=== PATIENT | female | born 1975 | race Caucasian/White ===

== ENCOUNTER 2016-10-24 10:59 | Day surgery (SDC) | payer OTHER ==
[~2016-10-24] VITALS: Ht 167.6 cm; Wt 74.0 kg
[~2016-10-24 10:59] MED LIST: 0.9% Sodium Chloride 1,000 ML IV SCH; LANS15TA3 PO; Sodium Chloride LOK Flush 10 mL Syringe IV PRN; fentaNYL-PF 50 mCg/mL 2 mL Inj IVPUSH PRN
[2016-10-24 11:25] VITALS: BP 145/96; PULSE 109; RESP 16; O2SAT 100
--- NOTE | 2016-10-24 12:53 | PCM.ENDEGD ---
EGD Date of Service: Oct 24, 2016 Physician Marck Nettles MD Pre Procedure Diagnosis: Epigastric pain and anemia Post Procedure Dx & Findings: Irregular Z line gastric nodule Procedure Esophagogastroduodenoscopy After proper sedation, Olympus video endoscope was inserted into patient's mouth and esophagus was successfully intubated. Scope introduced esophagus. Esophagus showed normal shiny whitish mucosa consistent with squamous cell component. Z line was irregular at 40 cm from the incisors. Biopsies obtained. Scope further advanced to the stomach. Stomach showed normal shiny mucosa with normal appearing rugae folds without any ulcer mass erosion. However in the antrum, there was a 5 mm nodule and a 3 mm nodule. These 2 sites were biopsied. Cardia fundus body antrum pylorus were all visualized. Retroflexion was done. Stomach was easily inflated and deflatable using air. Scope further events to the distal duodenum. Duodenum revealed normal villous structures with normal appearing folds without any mass ulcer erosion. 6 random biopsies obtained in the duodenum to rule out celiac disease from the distal duodenum to the duodenal bulb. Impression Gastric nodule 5 mm and 3 mm Irregular Z line Recommendation Await biopsy Presedation Assessment Risks and Benefits Informed consent was obtained from the patient after all risks and benefits including but not limited to drug reaction, infection, pain, bleeding, perforation, as well as alternatives were discussed. Patient monitoring Continuous pulse oximetry, cardiac monitoring, blood pressure monitoring, IV access, and oxygen at 2L per nasal cannula. Periprocedural Fentanyl: Fentanyl 200mcg Incrementally Midazolam: Midazolam 10mg Incrementally Complications There were no periprocedural complications identified. Post Procedure Plan Post Procedure Recommendations 1. Restrict activities today. 2. Resume normal activities in the morning. 3. Resume medications. 4. GERD behavioral modification: - Avoid fatty, acidic, spicy, large meals - Do not lie down after meals - Do not eat or drink anything for at least 2 1/2 hours before going to bed at night - Discontinue tobacco and alcohol - Decrease or avoid caffeine - Avoid chocolate and mints - Decrease weight - Avoid aspirin and non steroidal anti-inflammatory agents (NSAID) such as Aleve, Advil, Mobic, Naproxen, Ibuprofen, etc 5. Add proton pump inhibitor. Take 30 minutes before 1st meal of the day. 6. Patient informed of normal post procedure side effects as bloating, drowsiness, blood streaking in the stool 7. If gastric biopsy reveal H.pylori, continue with appropriate treatment 8. If small bowel biopsy reveals celiac, continue with appropriate treatment 9. Please don't hesitate to call me with any questions Marck Nettles MD Oct 24, 2016 12:53
[2016-10-24 12:55] VITALS: BP 142/94; PULSE 115; RESP 16; O2SAT 100
--- NOTE | 2016-10-24 12:55 | PCM.ENDCOL ---
Colonoscopy Date of Service: Oct 24, 2016 Physician Marck Nettles MD Pre Procedure Diagnosis: Anemia Post Procedure Dx & Findings: Hemorrhoids Procedure Colonoscopy PROCEDURE IN DETAIL: Prep poor in certain areas. Patient had vegetable soup yesterday morning. After unremarkable rectal examination the Olympus video colonoscope was inserted patient's anal canal and was advanced to cecum. Landmarks were identified including the ileocecal valve and appendiceal orifice. Scope was further advanced into the terminal ileum. Advanced 10 cm. Visualized terminal ileum showed normal villous structures without ulcer or mass erosion. Scope was withdrawn systematically. Visualized colonic mucosa showed healthy shiny mucosa with normal healthy-appearing vasculature. The prep was adequate outstanding about 90% of the area. There were sections of vegetable scattered intermittently throughout the colon. Most significantly in the cecum. Of course we could not suction this and this was not washable. We had scope intermittently getting clogged because of the vegetables. We got the patient on her back and change positions to see if a good dislodge these vegetables. But we are not successful. In the rectum retroflexion was done which showed hemorrhoids. Anal canal was inspected carefully on the way out and hemorrhoids noted. Impression Poor prep in certain areas. Normal TI Hemorrhoids Recommendation Repeat colonoscopy 3 months with liquid diet the day before and low residual diet for about a week. Presedation Assessment Risks and Benefits Informed consent was obtained from the patient after all risks and benefits including but not limited to drug reaction, infection, pain, bleeding, perforation, as well as alternatives were discussed. Patient monitoring Continuous pulse oximetry, cardiac monitoring, blood pressure monitoring, IV access, and oxygen at 2L per nasal cannula. Complications There were no periprocedural complications identified. Post Procedure Plan Post Procedure Recommendations 1. Restrict activities today. 2. Resume normal activities in the morning. 3. Resume medications. 4. Patient informed of normal post procedure side effects as bloating, drowsiness, blood streaking in the stool. 5. average risk CRCS. If colon polyps come back as: -Hyperplastic- can repeat colonoscopy in 10 years -Tubular adenoma- repeat colonoscopy in 5 years -Tubulovillous/villous adenoma- repeat colonoscopy in 3 years -If any dysplasia- return to clinic as soon as possible 6. Please don't hesitate to call me with any questions. Marck Nettles MD Oct 24, 2016 12:55
[2016-10-24 13:05] VITALS: BP 141/82; PULSE 111; RESP 16; O2SAT 98
[2016-10-24 13:15] VITALS: BP 143/91; PULSE 125; RESP 16; O2SAT 100
[2016-10-24 13:25] VITALS: BP 158/87; PULSE 115; RESP 16; O2SAT 100
--- NOTE | 2016-10-25 16:54 | PATH ---
SURGICAL PATHOLOGY Attending Physician:Marck Nettles M.D. CASE STATUS: Signed Out PATIENT NAME: SUREKHA PEÑA V. PID: [id number] : 1975 DATE COLLECTED:10/24/2016 21:10 SPECIMEN: 1: Duodenum, Biopsy 2: Gastric, Biopsy 3: Esophagus, Biopsy CLINICAL HISTORY: ABDOMINAL PAIN 1). DUODENUM BIOPSY 2). GASTRIC NODULE BIOPSY 3). DISTAL ESOPHAGUS BIOPSY FINAL DIAGNOSIS: 1.DUODENUM, BIOPSY: DUODENAL MUCOSA WITH NO DIAGNOSTIC ABNORMALITY. Negative for active inflammation, features of sprue, dysplasia, and malignancy. 2.GASTRIC NODULE, BIOPSY: GASTRIC ANTRAL MUCOSA WITH FEATURES OF REACTIVE GASTROPATHY. Negative for Helicobacter organisms. Negative for intestinal metaplasia. Negative for dysplasia and malignancy. 3.DISTAL ESOPHAGUS, BIOPSY: SQUAMOCOLUMNAR JUNCTIONAL MUCOSA WITH NO DIAGNOSTIC ABNORMALITY. Negative for intestinal metaplasia. Negative for dysplasia and malignancy. ICD10 R10.9 GROSS DESCRIPTION: The specimen is received in three formalin filled containers labeled with the patient's name. 1). The specimen is labeled "duodenum" and consists of 4 portions of tissue which aggregate to 0.3 x 0.2 x 0.2 CM. The specimen is entirely submitted in cassette 1A. 2). The specimen is labeled "gastric nodule" and consists of 2 tiny portions of tissue which aggregate to 0.1 x 0.1 x 0.1 CM. The specimen is entirely submitted in cassette 2A. 3). The specimen is labeled "distal esophagus" and consists of a 0.2 x 0.2 x 0.2 CM portion of tissue which is entirely submitted in cassette 3A. 10/24/2016DC MICRO DESCRIPTION: See diagnosis. ICD-9 CODES: CPT CODES: 1: 15835 2: 92094 3: 81548 Electronically Signed Out Diego Graff MD, Ph.D. [facility], [place] [address] Technical component performed at [facility], [facility] [address], [place], [address]
== END 2016-10-24 23:59 | disposition home or self-care (01) ==
LOC: END 10:59 → EDUNIT# 11:45 → END 23:59
PROVIDERS: ATTEND Internal Medicine
DX: Z12.11 Encounter for screening for malignant neoplasm of colon (principal); Z86.010 Personal history of colon polyps; K64.9 Unspecified hemorrhoids; K31.9 Disease of stomach and duodenum, unspecified; R10.13 Epigastric pain; D50.9 Iron deficiency anemia, unspecified
CPT/HCPCS: 43239; 88305; 99152; 99153; G0105; J2250; J3010; J7030